=== PATIENT | female | born 1970 | race African-American/Black ===

== ENCOUNTER 2018-02-12 15:24 | Emergency (ER) | payer MEDICAID ==
--- NOTE | 2018-02-12 15:24 | NUR ---
Patient triaged and placed in waiting room. VSS and patient appears in no acute distress at this time. Accompanied by SON, awaiting available bed, and MD notified of need for MSE.
[2018-02-12 15:25] VITALS: BP_SYST 114
--- NOTE | 2018-02-12 16:36 | NUR ---
BROUGHT BACK TO BED #4 AND REPORT GIVEN TO MAXIMO
--- NOTE | 2018-02-12 16:40 | NUR ---
Patient is awake, alert, oriented x4. She is complaining of back pain since last night. Patient denies previous medical history.
--- NOTE | 2018-02-12 16:45 | NUR ---
ER Dr. Zavala at bedside examining patient.
[2018-02-12] MEDS ORDERED: KETOROLAC TROMETHAMINE 60 MG/2 ML VIAL IM ONE (17:00)
[2018-02-12 17:15] VITALS: BP_SYST 114
--- NOTE | 2018-02-12 17:15 | NUR ---
Patient given written and verbal discharge instructions and verbalizes understanding. ER MD discussed with patient the results and treatment provided. Patient in stable condition. ID arm band removed. Rx of robaxin, motrin given. Patient educated on pain management and to follow up with PMD. Pain Scale 7/10, patient stated it was tolerable. Opportunity for questions provided and answered. Medication side effect fact sheet provided.
== END 2018-02-12 17:15 | disposition home or self-care (01) ==
LOC: SED 15:24
DX: M62.830 Muscle spasm of back (principal); R03.0 Elevated blood-pressure reading, without diagnosis of hypertension
CPT/HCPCS: 81025; 96372; 99283; J1885

== ENCOUNTER 2019-09-29 10:39 | Emergency (ER) | payer OTHER, MEDICAID ==
[~2019-09-29] VITALS: Ht 160 cm; Wt 108.9 kg
[2019-09-29 10:53] VITALS: BP_SYST 158
--- NOTE | 2019-09-29 11:00 | NUR ---
ambulated to bed 6
--- NOTE | 2019-09-29 11:05 | NUR ---
Patient presents to ER C/O facial swelling & dental pain, Patient A&Ox4, ambulatory to ER, skin pink and warm, denies D/V/D, pain 12/17. Patient states she was seen at [facility] yestrerday, treated for dental abcess & given ABX RX. Patient states she in day#2 of ABX TX, facial swelling has increased today & pain continues.
--- NOTE | 2019-09-29 11:30 | NUR ---
Pt declined lab draw.
--- NOTE | 2019-09-29 11:45 | NUR ---
# 20 gauge angiocath placed to left AC. Use of asceptic technique. Opsite placed over site. Blood return noted. Blood for lab drawn from site. Flushed with 10 cc of normal saline. No evidence of infiltration noted. Patient tolerated well.
[2019-09-29 12:03] LABS: BASOPHILS % (AUTO) 0.4 % (0.0-2.0); EOSINOPHILS # (AUTO) 0.1 K/uL (0.0-0.4); EOSINOPHILS % (AUTO) 0.5 % (0.0-4.0); HEMATOCRIT 38.7 % (36-48); HEMOGLOBIN 12.8 g/dL (12.0-16.0); LYMPHOCYTES # (AUTO) 1.9 K/uL (1.0-5.5); LYMPHOCYTES % (AUTO) 20.2 % (20.5-51.5); MEAN CORPUSCULAR HEMOGLOBIN 28 pg (27-31); MEAN CORPUSCULAR HGB CONC 33 % (32-36); MEAN CORPUSCULAR VOLUME 86 fL (79.0-98.0); MONOCYTES # (AUTO) 0.4 K/uL (0.0-1.0); MONOCYTES % (AUTO) 3.9 % (1.7-9.3); NEUTROPHILS # (AUTO) 6.9 K/uL (1.8-7.7); PLATELET COUNT (AUTO) 358 K/uL (130-430); RED CELL DISTRIBUTION WIDTH 17.2 % (9.0-15.0); WHITE BLOOD COUNT (AUTO) 9.2 K/uL (4.8-10.8)
[2019-09-29 12:10] LABS: ALBUMIN 2.9 g/dL (3.4-4.8); CALCIUM 8.5 mg/dL (8.4-11.0); CREATININE 0.56 mg/dL (0.55-1.30)
--- NOTE | 2019-09-29 12:13 | NUR ---
REPORT GIVEN TO SILVINA FITZPATRICK
[2019-09-29] MEDS ORDERED: KETOROLAC TROMETHAMINE 30 MG VIAL IVP ONE (12:15)
[2019-09-29 12:16] LABS: POTASSIUM 3.4 mmol/L (3.5-5.1)
[2019-09-29 12:19] LABS: PROTHROMBIN TIME 9.9 SECS (9.5-12.5)
[2019-09-29 12:37] LABS: C-REACTIVE PROTEIN QUANT 16.4 mg/dL (0-0.5)
[2019-09-29 12:38] LABS: TOTAL BILIRUBIN 0.4 mg/dL (0.0-1.0)
[2019-09-29 13:03] VITALS: BP_SYST 122
--- NOTE | 2019-09-29 13:04 | NUR ---
Patient given written and verbal discharge instructions and verbalizes understanding. ER MD MADERA discussed with patient the results and treatment provided. Patient in stable condition. ID arm band removed. IV catheter removed intact and dressing applied, no active bleeding. Rx of CLINDAMYCIN, DIFLUCAN,IBU given. Patient educated on pain management and to follow up with PMD. Pain Scale 2/10 . Opportunity for questions provided and answered. Medication side effect fact sheet provided.
== END 2019-09-29 13:03 | disposition home or self-care (01) ==
LOC: SED 10:39
DX: L03.211 Cellulitis of face (principal)
CPT/HCPCS: 36415; 80053; 83605; 85025; 85610; 85730; 86140; 96374; 99283; J1885

== ENCOUNTER 2020-02-28 07:59 | Emergency (ER) | payer OTHER, MEDICAID ==
[~2020-02-28] VITALS: Ht 160 cm; Wt 107.0 kg
[2020-02-28 08:08] VITALS: BP_SYST 150
--- NOTE | 2020-02-28 08:08 | NUR ---
Patient to ER bed 7 to gown for evaluation. Side rails up. Report given to CHINTAN FITZPATRICK .
--- NOTE | 2020-02-28 08:10 | NUR ---
Patient presented to ER C/O Back pain. Patient A&Ox4, afebrile, ambulatory & wheelchair, skin pink and warm, pain 02/16, denies N/V/D. Patient states she had sudden pain & heard a crack from her back when she bent over to put shorts on; pain caused PT to fall to roght side & back. PT denies head injury. PT states she had bilat mastectomy 01/23/2020.
--- NOTE | 2020-02-28 08:26 | NUR ---
ER Dr. Wiley at bedside examining patient.
[2020-02-28] MEDS ORDERED: HYDROcodone/ACETAMIN 5-325 MG TAB (NORCO/ VICODIN) PO ONE (08:30)
[2020-02-28] MEDS ORDERED: KETOROLAC TROMETHAMINE 60 MG/2 ML VIAL IM ONE (08:30)
--- NOTE | 2020-02-28 08:35 | NUR ---
PT to Radiology via wheelchair
[2020-02-28 09:25] VITALS: BP_SYST 148
--- NOTE | 2020-02-28 09:25 | NUR ---
Patient given written and verbal discharge instructions and verbalizes understanding. ER MD discussed with patient the results and treatment provided. Patient in stable condition. ID arm band removed. Rx of [place], Motrin & Robaxin given. Patient educated on pain management and to follow up with PMD. Pain Scale 3/10. Opportunity for questions provided and answered. Medication side effect fact sheet provided.
== END 2020-02-28 09:25 | disposition home or self-care (01) ==
LOC: SED 07:59
DX: S39.012A Strain of muscle, fascia and tendon of lower back, initial encounter (principal); X50.1XXA Overexertion from prolonged static or awkward postures, initial encounter; Y93.89 Activity, other specified; Y92.89 Other specified places as the place of occurrence of the external cause; Y99.8 Other external cause status
CPT/HCPCS: 72100; 96372; 99283; J1885